=== PATIENT | female | born 1965 | race Hispanic/Latino ===

== ENCOUNTER 2016-03-27 09:27 | Day surgery (SDC) | payer OTHER ==
[~2016-03-27] VITALS: Ht 157.5 cm; Wt 75.7 kg
--- NOTE | 2016-03-27 09:19 | PCM.HPANE ---
Patient Data Surgeon Admitting Provider: Attending Provider:Ritu Cardona MD Primary Care Physician:Snehal Other Provider:Nehal Engle Anesthesia Reason for Visit Urinary Urgency, Urge Incontinence Ht/WT & BMI Height (Feet): 5 Height (Inches): 2 Weight (Kilograms): 77.11 Body Mass Index 31.00 Allergies Coded Allergies: loratadine (Verified Allergy, Unknown, 01/04/14) Past Anesthesia History Anesthesia History: Positive for:: Anesthesia Reactions (nausea), Denies:: Fam Anesthesia Reaction Diabetes History Hx Diabetes?: No MRSA MRSA: No Medications Hypertension Medication: Yes Home Meds Incl Beta Neeraj: No Reported Medications Cholecalciferol (Vitamin D3) (Vitamin D3)400 Unit [id number] Unit PO DAILY 03/22/16 Omeprazole 40 Mg Capsule.dr40 Mg PO DAILY Ref 0 03/22/16 [excedrin migraine] No Conflict CheckUnknown Dose PRN migraines 03/22/16 Amlodipine 5 Mg Tablet5 Mg PO DAILY Ref 0 03/22/16 Discontinued Reported Medications Cholecalciferol (Vitamin D3) (Vitamin D3)4,000 Unit Capsule4,000 Unit PO DAILY 03/02/15 Promethazine 25 Mg Wzzxgk80 Mg PO Q6H PRN For Nausea Ref 0 03/02/[address] 20 Mg Tablet.dr40 Mg PO DAILY Ref 0 03/02/15 Lisinopril 20 Mg Zicihs68 Mg PO DAILY 30 Days Ref 0 03/02/15 Aspirin/Acetaminophen/Caffeine (Kro Migraine Formula Caplet)250 Mg-250 Mg-65 Mg Tablet1 Each PO 03/02/15 Tamsulosin (Flomax)0.4 Mg Capsule0.4 Mg PO DAILY Ref 0 03/02/15 History History of ENT Problems?: Yes HEENT History: Positive for:: Sinus Problem (sinus) Denies:: Abnormal Airway Difficult Intubation Hearing Problem Hx of Heart Problems?: Yes Cardiovascular History: Positive for:: Hypertension Denies:: AICD Heart Murmur Irregular Heartbeat Pacemaker Hx of Respiratory Problem?: No Respiratory History: Denies:: Asthma COPD Emphysema Pneumonia Tuberculosis Use of C-PAP Machine Use of Inhalers / NEBS Hx Neurologic Problems?: Yes Neurological History: Positive for:: Headaches Denies:: CVA Multiple Sclerosis Parkinson's Disease Seizures Hx of GI Problems?: Yes Gastrointestinal History: Positive for:: Gastroesphageal Reflux Heartburn Hx of Problems?: Yes Genitourinary History: Denies:: Kidney Stones Other Pertinent History: hx of interstitial cystitis, bladder cancer. [place] sling Female Hx: Denies:: Currently (hyst) Problems with Breasts? Skin History: Denies:: History Skin Disorders? Pressure Ulcers Hx Musculoskeletal Problems?: No Musculoskeletal History: Denies:: Back Injury Joint Replacement Musculoskeletal Trauma Hx of Psycho/Social Problems?: No Hx Surgeries?: Yes (Cysto, bladder fulguration, hyst, a+P repair, bladder sling , liposuction) Hx Any Other Health Problems?: Yes Other History: Positive for:: Cancer (bladder) Denies:: Thyroid Disease History Blood Transfusions: Denies:: Blood Transfusions Hx Diabetes: No Hx Alcohol Use: NoHx Substance Use: No Smoking Status: Never Smoker Have You Smoked inLast 12 mo: No Stop/Bang Treated for Sleep Apnea?: No Do You Have a CPAP Machine?: No S-Snoring: Do You Snore Loudly: No T-Tired: feel tired, fatigued: Yes O-Obsered: Observed not breath: Yes P-Blood Pressure: treated: Yes B- Body Mass Index > 35 kg/m2: No A- Age over 50: No N- Neck Large Circumference: No G- Gender Male: No SOFI Total Score: 3 SOFI Risk Assessment: High Risk, =/>3 Yes SOFI Category 4 OutPt Procedure: Yes Risk Assessment Category Category 1A: Patient has history of documented sleep apnea, and HAS NOT received any narcotic, sedative or anesthesia administration during this stay. Category 1B: Patient has history of documented sleep apnea, and HAS received any narcotic , sedative or anesthesia administration during this stay Category 2: Patient has SUSPECTED Obstructive Sleep Apnea, and HAS received any narcotic , sedative or anesthesia administration during this stay. Category 3: Patient has SUSPECTED Obstructive Sleep Apnea and HAS NOT received narcotic, sedative or anesthesia administration during this stay. Category 4: Outpatient in Procedural Areas with known sleep apnea or who screen positive for High Risk via the STOP/BANG questionnaire. Exam Exam General Appearance: Alert, Oriented X3, Cooperative, No Acute Distress HEENT/AIRWAY: MP 2 Lungs: Clear to Auscultation, Normal Air Movement Heart: Exam Unremarkable, Regular Rate/Rhythm, No Murmurs/Rubs/Gallops Plan Impression Patient chart reviewed, patient interviewed and anesthestic plan with risks, benefits, and alternatives discussed, and informed consent obtained. NPO Status: 7PM ASA Physical Status: ASA2 Mod Systemic Disease Anesthetic Plan: MAC Bene/Risks/Altern/Consents: Yes HP Complete Prior to Induction: Yes Orlin Taylor MD Mar 27, 2016 09:19
[~2016-03-27 09:27] MED LIST: AMLO5TAB2 PO; CHOL400T PO; CeFAZolin 2 Gm/50 mL D5W IV Premix IV ONE; Lactated Ringer's 1,000 ML IV SCH; OMEP40CA36 PO; excedrin migraine
[2016-03-27] MEDS ORDERED: fentaNYL-PF 50 mCg/mL 2 mL Inj ONE (09:28)
[2016-03-27] MEDS ORDERED: Ketamine 10 mg/mL 20 mL Inj ONE (09:28)
[2016-03-27 10:03] VITALS: BP 156/94; PULSE 63; RESP 19; O2SAT 97
[2016-03-27] MEDS ORDERED: Lactated Ringer's 1,000 ML IV ONE (10:36)
[2016-03-27] MEDS ORDERED: Gentamicin 40 mg/mL 2 mL Inj INJ ONE (11:29)
[2016-03-27] MEDS ORDERED: Bupivacaine-MPF 0.5% W/EPI 30 mL Inj INFILTRATE ONE (11:29)
[2016-03-27] MEDS ORDERED: Vancomycin 1,000 mg Inj IRRIGATION ONE (11:30)
[2016-03-27] MEDS ORDERED: Lactated Ringer's 500 ML IV PRN (12:27)
[2016-03-27] MEDS ORDERED: Lactated Ringer's 1,000 ML IV SCH (12:27)
[2016-03-27] MEDS ORDERED: Dexamethasone 4 mg/mL Inj IVPUSH PRN (12:30)
[2016-03-27] MEDS ORDERED: EPHEDrine Sulfate 50 mg/mL Inj IVPUSH PRN (12:30)
[2016-03-27] MEDS ORDERED: Phenylephrine 10,000 mCg/mL Inj IVPUSH PRN (12:30)
[2016-03-27] MEDS ORDERED: Ondansetron 2 mg/mL 2 mL Inj IVPUSH PRN (12:30)
[2016-03-27] MEDS ORDERED: fentaNYL-PF 50 mCg/mL 2 mL Inj IVPUSH PRN (12:30)
[2016-03-27] MEDS ORDERED: MetoCLOpramide 5 mg/mL 2 mL Inj IVPUSH PRN (12:30)
[2016-03-27] MEDS ORDERED: HYDROmorphone 1 mg/mL Inj IVPUSH PRN (12:30)
[2016-03-27] MEDS ORDERED: HYDROcodone-APAP 5-325 mg Tablet PO PRN (12:45)
[2016-03-27] MEDS ORDERED: Ondansetron 8 mg ODT Tablet PO PRN (12:45)
[2016-03-27] MEDS ORDERED: HYDROcodone-APAP 5-325 mg Tablet PO ONE (12:52)
--- NOTE | 2016-03-27 13:26 | PCM.ANEP1 ---
Post Anesthesia Phase 1 PACU Phase 1 Assessment Vital Signs Vital Signs Date Time Temp Pulse Resp B/P Pulse Ox O2 Delivery O2 Flow Rate FiO2 03/27/16 10:03 36.7 63 19 156/94 97 Room Air Anesthetic Administered: MAC REEDER's with Equal Strength: Yes Pain: No Nausea or Vomiting: No Oxygen Delivery: Nasal Cannula Lungs: Clear to Auscultation, Normal Air Movement Dermatome Level: Full Sensation Orlin Taylor MD Mar 27, 2016 13:26
--- NOTE | 2016-03-27 13:26 | PCM.ANEP2 ---
Post Anesthesia Evaluation ASA/CMS Post Anesthesia VS in Patient's Normal Range?: Yes Resp Stable; Airway Patent?: Yes CV Function & Hydration Stable: Yes Mental Status Recovered?: Yes Pain control Satisfactory?: Yes N/V Control Satisfactory?: Yes Orlin Taylor MD Mar 27, 2016 13:26
[2016-03-27 13:39] VITALS: BP 139/78; PULSE 73; RESP 17; O2SAT 97
--- NOTE | 2016-03-27 23:20 | OP ---
[address] [address] OPERATIVE REPORT PATIENT: ALEXA CUELLO : 1965 MR#: [id number] ADMIT: 03/27/2016 JOB ID: [id number] DATE OF SURGERY: 03/27/2016 PROCEDURE: Stage 1 InterStim implant to include transforaminal placement of sacral neural electrode, as well as fluoroscopy imaging and guidance. SURGEON: Ritu Cardona MD. ANESTHESIA: Local with monitored anesthesia care and IV sedation. PREOPERATIVE DIAGNOSIS(ES): Intractable urinary urgency, frequency, severe, failing numerous treatment modalities, conservative, behavioral and minor surgical, electing trial of sacral neuromodulation for her severe symptoms. POSTOPERATIVE DIAGNOSIS(ES): PROCEDURE IN DETAIL: After appropriate informed consent was obtained, patient was brought to the operating room. She received IV Ancef prior to onset of the procedure. She was made comfortable in the prone position. All pressure points were carefully padded. Cleaned, prepped and draped in the usual sterile fashion. Fluoroscope was brought in for identification of bony landmarks and used a finder needle to locate first the right, and then ultimately the left, S3 sacral foramen. With toe flexion and helga response indicating an S3. We converted the best example over to a quadripolar sacral neural electrode in Seldinger fashion. We had good responses on all four electrodes under 1.5. The lead polly were allowed to deploy and the lead was locked in place. We then tunneled the distal end of this over to a pocket site on the patient's right. It was expanded to allow us to make the connection to the extension wire, which was then tunneled out the distal end of this to the contralateral side. Hemostasis achieved with electrocautery. The wounds themselves were irrigated out copiously with antibiotic solution of vancomycin and gentamicin. We then closed them in layers of 2-0 Vicryl, 4-0 Monocryl, benzoin and Steri-Strips. The patient tolerated procedure well, was awakened and taken in stable condition to the one day surgery area prior to discharge to home. XIAO
== END 2016-03-27 23:59 | disposition home or self-care (01) ==
LOC: SAS 09:27
PROVIDERS: ATTEND Urology
DX: N39.41 Urge incontinence (principal); R35.0 Frequency of micturition; R10.2 Pelvic and perineal pain; Z85.51 Personal history of malignant neoplasm of bladder; I10 Essential (primary) hypertension; K21.9 Gastro-esophageal reflux disease without esophagitis
CPT/HCPCS: 64581; 76000; C1778; J0690; J1580; J2250; J3370; J7120

== ENCOUNTER 2016-03-29 12:45 | Emergency (ER) | payer OTHER ==
[~2016-03-29] VITALS: Ht 157.5 cm; Wt 77.3 kg
[~2016-03-29 12:45] MED LIST changes: -CeFAZolin 2 Gm/50 mL D5W IV Premix IV ONE; -Lactated Ringer's 1,000 ML IV SCH
[2016-03-29 12:52] VITALS: BP 147/92; PULSE 65; RESP 16; O2SAT 100
--- NOTE | 2016-03-29 13:57 | ED.REPORT ---
HPI-General Illness Date of Service Mar 29, 2016 ED Provider: Aden Bui DO Pt is a 51 y/o female presenting to the ED c/o possible medication or post- surgical complications onset today. The pt had a "Stage 1 InterStim implant to include transforaminal placement of sacral neural electrode, as well as fluoroscopy imaging and guidance" procedure performed 2 days ago by urologist Ritu Cardona with the indication of "Intractable urinary urgency, frequency, severe, failing numerous treatment modalities, conservative, behavioral and minor surgical, electing trial of sacral neuromodulation for her severe symptoms ". She was feeling fine after the surgery but developed trouble urinating ( without retention), nausea and vomiting and constipation, after starting Bactrim and Hydrocodone. She stopped taking the prescribed medications and all of her symptoms have resolved. She was sent in by request of urology today to evaluate her with primary concern for urinary retention and constipation (this must have been misinterpreted by the office as the patient states that she is not experiencing retention or constipation). She denies abdominal pain, fever, chills. Of note, she was able to provide a urine sample independently before interview. Nursing Notes Stated Complaint: NAUSEA/HEADACHE Chief Complaint: General Complaint Nursing Notes Reviewed: Yes Allergies: Coded Allergies: loratadine (Verified Allergy, Unknown, 01/04/14) Scheduled Amlodipine (Amlodipine) 5 Mg Tablet 5 MG PO DAILY Cephalexin (Keflex) 500 Mg Capsule 500 MG PO QID Cholecalciferol (Vitamin D3) (Vitamin D3) 400 Unit Tablet 400 UNIT PO DAILY Omeprazole (Omeprazole) 40 Mg Capsule.dr 40 MG PO DAILY Scheduled PRN ([excedrin migraine]) Unknown Dose PRN migraines General Time Seen by MD: 13:32 Chief Complaint Multip medical complaints Hx Obtained From: Patient, Housekeeper Manager Arrived By: Walk-in Sudden in Onset?: No Onset Occurred: 1 day ago Symptom Duration: Since onset Severity: Current: No pain currently Severity: Maximum: No pain Recent Healthcare: Recent doctor visit, Previous surgery Similar Sx Previous: No Past Medical History Past Medical History Hx urinary incontinence, s/p bladder stimulus implant HTN GERD Bladder CA Past Surgical History Bladder incontinence repair Cysto Bladder fulguration Hysterectomy A+P repair Bladder sling Liposuction Smoking History Never Smoker Social History Alcohol Use: Denies alcohol use Drug Use: Denies drug use Ambulatory Status Independent Review of Systems Full Review of Systems Constitutional: Denies: Chills, Fever GI: Reports: Constipation, Nausea, Vomiting, Denies: Abdominal pain Female: Reports: Urination decreased Complete sys rev & neg: except as marked. Physical Exam Vital Signs Vital Signs Date Time Temp Pulse Resp B/P Pulse Ox O2 Delivery O2 Flow Rate FiO2 03/29/16 12:52 37.0 65 16 147/92 100 Initial VS: Reviewed, Vital signs normal Head / Eyes: Atraumatic, Normocephalic, PERRL ENT: Mucous membranes moist, Conjunctiva normal, No scleral icterus Neck: Supple, Full range of motion Respiratory: Breath sounds normal, Clear to auscultation, No respiratory distress Cardiovascular: Regular rate & rhythm, Heart sounds normal, Intact distal pulses Abdomen / GI: Soft, Non-tender, No guarding, No rebound, No distention Extremities: Vascular intact, Neuro intact, No swelling, No tenderness Skin: Warm, Dry, No cyanosis Neurologic: Alert, Oriented, Nonfocal Psychiatric: Mood/affect normal, Behavior normal, Normal thought content General/Constitutional: Awake, Alert, No acute distress, Well appearing, Cooperative, Not toxic appearing Interpretation & Diagnostics Lab Results Interpretation Test 03/29/16 13:20 Hold Urine Received (Received) Lab Results Interpretation: Urine dip: No signs of UTI Re-Eval/Medical Decision Med Decision/Clinical Course Overall sounds like concern for urinary retention and bowel obstruction, both of these seem very unlikely after interview with wine fermenter and physical exam. Patient is happy without any narcotic pain medication and will use Tylenol. Bactrim is changed to Keflex. I doubt that either of these are true allergies based on her symptoms though it sounds like she was insensitive likely to the Vicodin and is unwilling to restart Bactrim due to the timely association of the 2. Certainly urinary retention and bowel obstruction are concerning and she is given return in follow-up precautions regarding these and other issues. Time of Eval: 14:18 Re-Evaluation/Progress Note: Pt rechecked. Informed pt of plan for treatment. Pt understands and agrees with plan for treatment. F/U and RTER warnings given. All questions addressed. Counseled Regarding: Diagnosis, Need for follow-up, When/why to return to ED Discharge & Departure Primary Impression: Medication side effect Encounter type: initial encounter Qualified Code: T88.7XXA - Unspecified adverse effect of drug or medicament, initial encounter Disposition: Home Discharge Condition All VS Reviewed: Yes Condition: Stable Additional Instructions: I believe that your symptoms were caused by medication side effects. We will change your antibiotic to Keflex. I would recommend that you use Tylenol as needed for pain and only use the hydrocodone only for severe, breakthrough pain. Follow up with urology next week. I have sent a copy of your note today to Dr. Cardona. Return to the emergency department if you develop a fever, urinary retention, severe pain, or other concerning signs or symptoms. Referrals: OTHER,PHYSICIAN (PCP) Ritu Cardona MD Attestation Portions of this note were transcribed by Az Rosas. I, Dr. Bui personally performed the history, physical exam and medical decision-making; I reviewed and confirmed the accuracy of the information in the transcribed note. Signed by Felipe Michael, 03/29/16 - [id number] copies to: Ritu Cardona MD, Timothy S DO Mar 29, 2016 13:57 AZ ROSAS Mar 29, 2016 13:58
[2016-03-29] MEDS ORDERED: CEPH-512 PO (14:27)
== END 2016-03-29 14:41 | disposition home or self-care (01) ==
LOC: SED 12:45
DX: R33.9 Retention of urine, unspecified (principal); R11.2 Nausea with vomiting, unspecified; K59.00 Constipation, unspecified; T36.95XA Adverse effect of unspecified systemic antibiotic, initial encounter; T40.2X5A Adverse effect of other opioids, initial encounter; X58.XXXA Exposure to other specified factors, initial encounter; Y92.9 Unspecified place or not applicable; Y93.9 Activity, unspecified; Y99.9 Unspecified external cause status; I10 Essential (primary) hypertension; K21.9 Gastro-esophageal reflux disease without esophagitis; Z96.0 Presence of urogenital implants; Z85.51 Personal history of malignant neoplasm of bladder; Z88.8 Allergy status to other drugs, medicaments and biological substances

== ENCOUNTER 2016-04-05 07:36 | Day surgery (SDC) | payer OTHER ==
[~2016-04-05] VITALS: Ht 157.5 cm; Wt 74.4 kg
[~2016-04-05 07:36] MED LIST changes: +CEPH-512 PO; +CeFAZolin 2 Gm/50 mL D5W IV Premix IV ONE
[2016-04-05] MEDS ORDERED: Propofol 10,000 mCg/mL 20 mL Inj ONE (07:37)
[2016-04-05] MEDS ORDERED: fentaNYL-PF 50 mCg/mL 2 mL Inj ONE (07:37)
[2016-04-05] MEDS ORDERED: Dexamethasone 4 mg/mL Inj ONE (07:37)
[2016-04-05] MEDS ORDERED: Ondansetron 2 mg/mL 2 mL Inj ONE (07:37)
[2016-04-05] MEDS ORDERED: Ketamine 10 mg/mL 20 mL Inj ONE (07:37)
[2016-04-05] MEDS: Lactated Ringer's 1,000 ML IV SCH ×2 (07:40→09:21)
--- NOTE | 2016-04-05 07:53 | PCM.HPANE ---
Patient Data Surgeon Admitting Provider: Attending Provider:Ritu Cardona MD Primary Care Physician:Other,Physician Other Provider:Nehal Engle Anesthesia Reason for Visit Urinary Urgency, Urge Incontinence Ht/WT & BMI Height (Feet): 5 Height (Inches): 2 Weight (Kilograms): 77.11 Body Mass Index 31.00 Allergies Coded Allergies: loratadine (Verified Allergy, Unknown, 01/04/14) Past Anesthesia History Anesthesia History: Positive for:: Anesthesia Reactions (nausea), Denies:: Abnormal Airway, Difficult Intubation, Fam Anesthesia Reaction Diabetes History Hx Diabetes?: No MRSA MRSA: No Medications Hypertension Medication: Yes Home Meds Incl Beta Neeraj: No Active Scripts Cephalexin (Keflex)500 Mg [id number] Mg PO QID #20 CAPSULE Ref 0 Prov:Aden Bui DO 03/29/16 Reported Medications Cholecalciferol (Vitamin D3) (Vitamin D3)400 Unit [id number] Unit PO DAILY 03/22/16 Omeprazole 40 Mg Capsule.dr40 Mg PO DAILY Ref 0 03/22/16 [excedrin migraine] No Conflict CheckUnknown Dose PRN migraines 03/22/16 Amlodipine 5 Mg Tablet5 Mg PO DAILY Ref 0 03/22/16 History History of ENT Problems?: Yes HEENT History: Positive for:: Sinus Problem (sinus) Denies:: Abnormal Airway Cataracts Difficult Intubation Glaucoma Hearing Problem Hx of Heart Problems?: Yes Cardiovascular History: Positive for:: Hypertension Denies:: AICD Heart Murmur Irregular Heartbeat Pacemaker Hx of Respiratory Problem?: No Respiratory History: Denies:: Asthma COPD Emphysema Oxygen Administration Pneumonia Tuberculosis Use of C-PAP Machine Hx Neurologic Problems?: Yes Neurological History: Positive for:: Headaches Denies:: CVA Multiple Sclerosis Parkinson's Disease Seizures Hx of GI Problems?: Yes Gastrointestinal History: Positive for:: Gastroesphageal Reflux Heartburn Hx of Problems?: Yes Genitourinary History: Denies:: Kidney Stones Urinary Tract Infection Other Pertinent History: stage 1 interstim done 03/27/16 Female Hx: Denies:: Currently (hyst) Problems with Breasts? Skin History: Denies:: History Skin Disorders? Pressure Ulcers Hx Musculoskeletal Problems?: No Musculoskeletal History: Denies:: Back Injury Joint Replacement Musculoskeletal Trauma Hx of Psycho/Social Problems?: No Hx Surgeries?: Yes (Cysto, bladder fulguration, hyst, a+P repair, bladder sling , liposuction) Hx Any Other Health Problems?: Yes Other History: Positive for:: Cancer (bladder) Denies:: Thyroid Disease History Blood Transfusions: Positive for:: Accept Blood Products? Denies:: Blood Transfusions Hx Diabetes: No Hx Alcohol Use: NoHx Substance Use: No Smoking Status: Never Smoker Have You Smoked inLast 12 mo: No Stop/Bang Treated for Sleep Apnea?: No Do You Have a CPAP Machine?: No S-Snoring: Do You Snore Loudly: No T-Tired: feel tired, fatigued: Yes O-Obsered: Observed not breath: Yes P-Blood Pressure: treated: Yes B- Body Mass Index > 35 kg/m2: No A- Age over 50: No N- Neck Large Circumference: No G- Gender Male: No SOFI Total Score: 3 SOFI Risk Assessment: High Risk, =/>3 Yes SOFI Category 4 OutPt Procedure: Yes Risk Assessment Category Category 1A: Patient has history of documented sleep apnea, and HAS NOT received any narcotic, sedative or anesthesia administration during this stay. Category 1B: Patient has history of documented sleep apnea, and HAS received any narcotic , sedative or anesthesia administration during this stay Category 2: Patient has SUSPECTED Obstructive Sleep Apnea, and HAS received any narcotic , sedative or anesthesia administration during this stay. Category 3: Patient has SUSPECTED Obstructive Sleep Apnea and HAS NOT received narcotic, sedative or anesthesia administration during this stay. Category 4: Outpatient in Procedural Areas with known sleep apnea or who screen positive for High Risk via the STOP/BANG questionnaire. Exam Exam General Appearance: Alert, Oriented X3, Cooperative, No Acute Distress HEENT/AIRWAY: MP 2 Lungs: Clear to Auscultation, Normal Air Movement Heart: Exam Unremarkable, Regular Rate/Rhythm, No Murmurs/Rubs/Gallops Meds/Labs/Diagnostics Admission Meds Current Medications Lactated Ringer's (Lr) 1,000 ml @ 120 mls/hr Q8H20M IV Last administered on t 07:40; Start 04/05/16 at 05:00; Stop 04/05/16 at 13:19 Plan Impression Patient chart reviewed, patient interviewed and anesthestic plan with risks, benefits, and alternatives discussed, and informed consent obtained. NPO Status: 03/26@2100 ASA Physical Status: ASA2 Mod Systemic Disease Anesthetic Plan: MAC Bene/Risks/Altern/Consents: Yes HP Complete Prior to Induction: Yes Orlin Taylor MD Apr 05, 2016 07:53
[2016-04-05 08:00] VITALS: BP 138/80; PULSE 60; RESP 18; O2SAT 99
[2016-04-05] MEDS ORDERED: Bupivacaine-MPF 0.5% W/EPI 30 mL Inj INFILTRATE ONE (09:21)
[2016-04-05] MEDS ORDERED: Gentamicin 40 mg/mL 2 mL Inj IRRIGATION ONE (09:21)
[2016-04-05] MEDS ORDERED: Vancomycin 1,000 mg Inj IRRIGATION ONE (09:21)
[2016-04-05] MEDS ORDERED: Lidocaine 1% 50 mL Inj INFILTRATE ONE (09:21)
[2016-04-05] MEDS ORDERED: Ondansetron 8 mg ODT Tablet PO PRN (10:10)
[2016-04-05] MEDS ORDERED: HYDROcodone-APAP 5-325 mg Tablet PO PRN (10:10)
[2016-04-05 10:11] VITALS: BP 130/84; PULSE 71; RESP 18; O2SAT 96
[2016-04-05 11:16] VITALS: BP 146/72; PULSE 64; RESP 17; O2SAT 98
--- NOTE | 2016-04-05 12:32 | PCM.HPANE ---
Patient Data Surgeon Admitting Provider: Attending Provider:Ritu Cardona MD Primary Care Physician:Other,Physician Other Provider:Nehal Engle Anesthesia Reason for Visit Urinary Urgency, Urge Incontinence Ht/WT & BMI Height (Feet): 5 Height (Inches): 2.00 Weight (Kilograms): 74.4 Body Mass Index 30.00 Allergies Coded Allergies: loratadine (Verified Allergy, Unknown, 01/04/14) Past Anesthesia History Anesthesia History: Positive for:: Anesthesia Reactions (nausea), Denies:: Abnormal Airway, Difficult Intubation, Fam Anesthesia Reaction Diabetes History Hx Diabetes?: No MRSA MRSA: No Medications Hypertension Medication: Yes Home Meds Incl Beta Neeraj: No Active Scripts Cephalexin (Keflex)500 Mg Ichiqyg057 Mg PO QID #20 CAPSULE Ref 0 Prov:Aden Bui DO 03/29/16 Reported Medications Cholecalciferol (Vitamin D3) (Vitamin D3)400 Unit [id number] Unit PO DAILY 03/22/16 Omeprazole 40 Mg Capsule.dr40 Mg PO DAILY Ref 0 03/22/16 [excedrin migraine] No Conflict CheckUnknown Dose PRN migraines 03/22/16 Amlodipine 5 Mg Tablet5 Mg PO DAILY Ref 0 03/22/16 History History of ENT Problems?: Yes HEENT History: Positive for:: Sinus Problem (sinus) Denies:: Abnormal Airway Cataracts Difficult Intubation Glaucoma Hearing Problem Hx of Heart Problems?: Yes Cardiovascular History: Positive for:: Hypertension Denies:: AICD Heart Murmur Irregular Heartbeat Pacemaker Hx of Respiratory Problem?: No Respiratory History: Denies:: Asthma COPD Emphysema Oxygen Administration Pneumonia Tuberculosis Use of C-PAP Machine Hx Neurologic Problems?: Yes Neurological History: Positive for:: Headaches Denies:: CVA Multiple Sclerosis Parkinson's Disease Seizures Hx of GI Problems?: Yes Gastrointestinal History: Positive for:: Gastroesphageal Reflux Heartburn Hx of Problems?: Yes Genitourinary History: Denies:: Kidney Stones Urinary Tract Infection Other Pertinent History: stage 1 interstim done 03/27/16 Female Hx: Denies:: Currently (hyst) Problems with Breasts? Skin History: Denies:: History Skin Disorders? Pressure Ulcers Hx Musculoskeletal Problems?: No Musculoskeletal History: Denies:: Back Injury Joint Replacement Musculoskeletal Trauma Hx of Psycho/Social Problems?: No Hx Surgeries?: Yes (Cysto, bladder fulguration, hyst, a+P repair, bladder sling , liposuction) Hx Any Other Health Problems?: Yes Other History: Positive for:: Cancer (bladder) Denies:: Thyroid Disease History Blood Transfusions: Positive for:: Accept Blood Products? Denies:: Blood Transfusions Hx Diabetes: No Hx Alcohol Use: NoHx Substance Use: No Smoking Status: Never Smoker Have You Smoked inLast 12 mo: No Stop/Bang Treated for Sleep Apnea?: No Do You Have a CPAP Machine?: No S-Snoring: Do You Snore Loudly: No T-Tired: feel tired, fatigued: Yes O-Obsered: Observed not breath: Yes P-Blood Pressure: treated: Yes B- Body Mass Index > 35 kg/m2: No A- Age over 50: No N- Neck Large Circumference: No G- Gender Male: No SOFI Total Score: 3 SOFI Risk Assessment: High Risk, =/>3 Yes SOFI Category 4 OutPt Procedure: Yes Risk Assessment Category Category 1A: Patient has history of documented sleep apnea, and HAS NOT received any narcotic, sedative or anesthesia administration during this stay. Category 1B: Patient has history of documented sleep apnea, and HAS received any narcotic , sedative or anesthesia administration during this stay Category 2: Patient has SUSPECTED Obstructive Sleep Apnea, and HAS received any narcotic , sedative or anesthesia administration during this stay. Category 3: Patient has SUSPECTED Obstructive Sleep Apnea and HAS NOT received narcotic, sedative or anesthesia administration during this stay. Category 4: Outpatient in Procedural Areas with known sleep apnea or who screen positive for High Risk via the STOP/BANG questionnaire. Exam Exam Vital Signs Vital Signs Date Time Temp Pulse Resp B/P Pulse Ox O2 Delivery O2 Flow Rate FiO2 04/05/16 11:16 64 17 146/72 98 Room Air 04/05/16 10:11 71 18 130/84 96 Room Air 04/05/16 08:00 36.5 60 18 138/80 99 Room Air Meds/Labs/Diagnostics Admission Meds Current Medications Cefazolin Sodium/ Dextrose 2 gm/ Premix 50 ml @ 100 mls/hr PREOP ONCE IV Last administered on 04/05/16t 09:21; Start 04/05/16 at 06:00; Stop 04/05/16 at 06:29; Status DC Lactated Ringer's (Lr) 1,000 ml @ 120 mls/hr Q8H20M IV Last administered on 09:21; Start 04/05/16 at 05:00; Stop 04/05/16 at 13:19 Bupivacaine HCl/ Epinephrine Bitart (Sensorcaine-MPF 0.5% W/EPI Inj) 30 ml STK- MED ONCE INFILTRATE Last administered on 04/05/16 09:21; Start 04/05/16 at 09: 21; Stop 04/05/16 at 09:41; Status DC Lidocaine HCl (Xylocaine 1% Inj) 30 ml STK-MED ONCE INFILTRATE Last administered on 04/05/16 09:21; Start 04/05/16 at 09:21; Stop 04/05/16 at 09:41 ; Status DC Gentamicin Sulfate (Gentamicin Inj) 80 mg STK-MED ONCE IRRIGATION Last administered on 04/05/16 09:21; Start 04/05/16 at 09:21; Stop 04/05/16 at 09:41 ; Status DC Vancomycin HCl (Vancocin Inj) 1,000 mg STK-MED ONCE IRRIGATION Last administered on 04/05/16 09:21; Start 04/05/16 at 09:21; Stop 04/05/16 at 09:41 ; Status DC Plan Impression Patient chart reviewed, patient interviewed and anesthestic plan with risks, benefits, and alternatives discussed, and informed consent obtained. NPO Status: 10pm Orlin Taylor MD Apr 05, 2016 12:32
--- NOTE | 2016-04-05 12:33 | PCM.ANEP2 ---
Post Anesthesia Evaluation ASA/CMS Post Anesthesia VS in Patient's Normal Range?: Yes Resp Stable; Airway Patent?: Yes CV Function & Hydration Stable: Yes Mental Status Recovered?: Yes Pain control Satisfactory?: Yes N/V Control Satisfactory?: Yes Orlin Taylor MD Apr 05, 2016 12:33
--- NOTE | 2016-04-05 12:33 | PCM.ANEP1 ---
Post Anesthesia Phase 1 PACU Phase 1 Assessment Vital Signs Vital Signs Date Time Temp Pulse Resp B/P Pulse Ox O2 Delivery O2 Flow Rate FiO2 04/05/16 11:16 64 17 146/72 98 Room Air 04/05/16 10:11 71 18 130/84 96 Room Air 04/05/16 08:00 36.5 60 18 138/80 99 Room Air Anesthetic Administered: MAC Level of Alertness: Awake, talking REEDER's with Equal Strength: Yes Pain: No Nausea or Vomiting: No Oxygen Delivery: Nasal Cannula Lungs: Clear to Auscultation, Normal Air Movement Dermatome Level: Full Sensation Orlin Taylor MD Apr 05, 2016 12:33
--- NOTE | 2016-04-06 06:01 | OP ---
[address] [address] OPERATIVE REPORT PATIENT: ALEXA CUELLO : 1965 MR#: [id number] ADMIT: 04/05/2016 JOB ID: [id number] DATE OF SURGERY: 04/05/2016 PROCEDURE NAME: Stage 2 InterStim implant to include IPG implantation and complex initial programming and setup of neurostimulator device. SURGEON: Ritu Cardona MD. ANESTHESIA: Local with monitored anesthesia care and IV sedation. PREOPERATIVE DIAGNOSIS(ES): Intractable urinary urgency and frequency, very severe, treatment refractory. POSTOPERATIVE DIAGNOSIS(ES): Intractable urinary urgency and frequency, very severe, treatment refractory. INDICATIONS: The patient is a 51-year-old woman with a very long history of interstitial cystitis, and intractable urgency and frequency, voiding up to three, four, five and six times per hour during the daytime and nighttime x5-6 at least every night, failed numerous medications, failed behavioral changes, diet changes, pelvic floor exercises. Electing trial of sacral nerve modulation. She underwent implantation of a left-sided lead and a right-sided pocket on March 27, 2016. Her results were vastly improved, although still with some urinary frequency. She was holding for 1 to 1-1/2 hours, far, far better than her previous frequency of multiple times per hour. Her nocturia also went down to three from five, six, seven, eight at times. She wished to proceed with implantation. PROCEDURE IN DETAIL: After appropriate informed consent was obtained, patient was brought to the operating room. She received IV Ancef prior to onset of the procedure. She had made comfortable in the prone position. All pressure points carefully padded. Cleaned, prepped, and draped in the usual sterile fashion. Half/half mixture of lidocaine and Marcaine was used for local anesthesia. The pocket was identified, opened up sharply and bluntly and with electrocautery. It was enlarged to accept the size of a Medtronic II IPG. We disconnected the extension wire, allowed this to fall away from the patient and discarded the extension wire. The pocket itself was irrigated out copiously with antibiotic solution of vancomycin and gentamicin. We then attached the Medtronic II IPG. Gentle tug revealed a good connection using the ratcheted screwdriver. This was placed into the pocket. Irrigated further with antibiotic solution and then closed in layers with a layer of 2-0 Vicryl, layer of 4-0 Monocryl and layer of Dermabond. The patient tolerated the procedure very well, was returned to the one-day surgery area. She was awake. The device itself was turned on. Initially set up with a rate of 14, pulse width of 210. Program one was 0 negative and 3 positive. Program two was 1 negative and 3 positive. Program three is 2 negative and 0 positive. Program four was 3 negative and 0 positive.
== END 2016-04-05 23:59 | disposition home or self-care (01) ==
LOC: SAS 07:36
PROVIDERS: ATTEND Urology
DX: N39.41 Urge incontinence (principal); I10 Essential (primary) hypertension; R51 Headache; K21.9 Gastro-esophageal reflux disease without esophagitis; R12 Heartburn; Z85.51 Personal history of malignant neoplasm of bladder; Z79.899 Other long term (current) drug therapy

== ENCOUNTER 2016-10-01 07:25 | Day surgery (SDC) | payer OTHER ==
[~2016-10-01 07:25] MED LIST changes: -CeFAZolin 2 Gm/50 mL D5W IV Premix IV ONE
[2016-10-01] MEDS ORDERED: Lidocaine Topical 2% 30 mL Jelly ONE (08:00)
== END 2016-10-01 23:59 | disposition home or self-care (01) ==
LOC: END 07:25
PROVIDERS: ATTEND Internal Medicine Gastroenterology
DX: R12 Heartburn (principal)